=== PATIENT | male | born 1950 | race Caucasian/White ===

== ENCOUNTER 2016-08-10 16:53 | Inpatient (IN) | payer OTHER ==
[2016-08-10] MEDS ORDERED: IOPAMIDOL 370 (76%) 100 ML VIAL IV ONE (16:54)
[2016-08-10 17:38] LABS: ABSOLUTE NEUTROPHIL COUNT 6.6 K/mm3 (1.8-7.7); BASO % 0.4 % (0.2-1.0); EOS # 0.2 (0.0-0.5); EOS % 1.9 % (0.9-2.9); HEMATOCRIT 43.2 % (32.0-52.0); HEMOGLOBIN 13.8 gm/l (14.0-18.0); IMM NEUT% 0.3 % (0-1); LYMPH # 1.9 (1.0-4.8); LYMPH % 20.5 % (15-45); MEAN CELL VOLUME 85.4 fl (80.0-94.0); MEAN CORPUSCULAR HEMOGLOBIN 27.3 pg (27.0-31.0); MEAN CORPUSCULAR HGB CONC 31.9 g/dl (33.0-37.0); MEAN PLATELET VOLUME 10.5 fl (7.4-10.4); MONO # 0.6 (0.0-0.8); MONO % 6.5 % (4-12); NEUT % 70.4 % (43-75); PLATELET COUNT 286 K/mm3 (130-400)
[2016-08-10] MEDS ORDERED: ASPIRIN CHEWTAB 81 MG TABLET ONE (17:46)
--- NOTE | 2016-08-10 17:47 | RAD ---
08/10/2016 5:42 PM CHEST - 2 VIEWS History: Shortness of breath Comparison: 09/17/2015 Findings: Two views of the chest are obtained. The lungs demonstrate tiny bilateral effusions. Patchy interstitial and airspace disease is noted at the bilateral base. Vascular marginal blurring and prominence to the perihilar, central airways is present. Findings are worrisome for heart failure though multifocal pneumonia could have a similar appearance. The cardiomediastinal silhouette is top normal in size. The osseous structures are intact.. IMPRESSION: Findings of probable heart failure. Follow-up as clinically warranted.
[2016-08-10 17:48] LABS: ALB/GLOB RATIO 1.4 (>1.0); CALCIUM 9.6 mg/dL (8.6-10.3)
[2016-08-10 17:54] LABS: TROPONIN I 0.04 ng/ml (0.0-0.06)
[2016-08-10 17:57] LABS: CKMB ISOENZYME 5.5 ng/ml (0.6-6.3)
[2016-08-10 18:01] LABS: D-DIMER 0.95 mg/L FEU (0.20-0.50); INR 1.15; PARTIAL THROMBOPLASTIN TIME 25.6 SECONDS (24.5-33.0); PROTHROMBIN TIME 12.2 SECONDS (9.3-11.4)
--- NOTE | 2016-08-10 19:09 | CT ---
INDICATION: Elevated d-dimer. COMPARISON: Plain films earlier on the same day. TECHNIQUE: Helical scan mode CT of the Thorax with 2 mm collimated images were obtained after uneventful intravenous contrast administration of 80 cc of Isovue-[id number]. Sagittal and coronal reformations with high resolution lung algorithm images were also created at this time. Maximal intensity projection images and 3-D volumetric sequences were created at a separate, dedicated workstation. DLP: 1178.7 FINDINGS: There are no pulmonary arterial filling defects. There is prominence to the main pulmonary artery measuring 3.7 cm on axial image 47 at the level the bifurcation. Right main pulmonary artery measures approximately 3.3 cm on image 46, while the left main pulmonary artery measures approximately 3.1 cm on axial image 38. Findings could relate to pulmonary arterial hypertension in the correct clinical context. Mosaic attenuation is present with intralobular septal thickening. Compressive airspace disease is noted at the lung bases bilaterally though underlying pneumonia cannot excluded. Bilateral moderate to large effusions are present, right greater than left. These were not as extensive on recent chest x-ray, and may have been in a subpulmonic distribution. The central airways are widely patent. There is no axillary adenopathy. Right paratracheal node on image 31 measures 1.6 x 1.6 cm. Subcarinal node on image 43 measures 1.5 x 1.5 cm. Right paratracheal node on image 24 measures 2 x 1.5 cm. Nodes are enlarged without respect histology. The heart and great vessels opacify normally. Possible coronary stent. Correlation with history. Mild cardiomegaly. No pericardial effusion. Limited assessment of the abdomen demonstrates small stones or sludge within the dependent portion of the gallbladder. Reflux of contrast from the right atrium is noted into the liver, likely relating to cardiac dysfunction. The remainder of the abdomen is unremarkable. Small sclerotic focus is present within the left seventh rib laterally on image 80. Finding is nonspecific and may relate to a bone island. There may be small bone island within the right fifth lateral rib as well. No other lytic or sclerotic lesions are identified. Mild degenerative changes of the spine. IMPRESSION: 1. Negative for pulmonary embolism. 2. Bilateral moderate to large effusions, regular the left. Additionally findings of heart failure are present with intralobular septal thickening. Mosaic attenuation to the lungs is present with associated compressive atelectasis from the effusions. Underlying pneumonia cannot be excluded. 3. Mild cardiomegaly. Possible cardiac stent. 4. Other findings as above. Findings were called to Dr. Gonzales at approximately 1904 hours on 08/10/2016.
[2016-08-10] MEDS ORDERED: FUROSEMIDE 40 MG/4 ML VIAL ONE (19:15)
[2016-08-10 21:44] VITALS: BMI 31.5
[2016-08-10] MEDS ORDERED: MAGNESIUM HYDROXIDE 30 ML UDCUP PO PRN (21:51)
[2016-08-10] MEDS ORDERED: BLISTEX LIPSTICK 1 EACH TP PRN (21:51)
[2016-08-10] MEDS ORDERED: BISACODYL 10 MG SUP PR PRN (21:51)
[2016-08-10] MEDS ORDERED: ACETAMINOPHEN 325 MG TABLET PO PRN (21:51)
[2016-08-10] MEDS ORDERED: MENTHOL/CETYLPYRD 1 EACH LOZENGE PO PRN (21:51)
[2016-08-10] MEDS ORDERED: BISACODYL 5 MG TABLET.EC PO PRN (21:51)
[2016-08-10] MEDS ORDERED: SODIUM CHLORIDE 0.9% 100 ML IV PRN (21:51)
[2016-08-10] MEDS ORDERED: PNEUMOCOCCAL 23-VAL P-SAC VAC 0.5 ML VIAL IM V ONE (21:53)
[2016-08-10] MEDS ORDERED: INSULIN ASPART (DOSE) 100 UNITS/1 ML SUB-Q PRN (22:09)
[2016-08-11 03:22] LABS: ABSOLUTE NEUTROPHIL COUNT 5.5 K/mm3 (1.8-7.7); BASO % 0.4 % (0.2-1.0); EOS # 0.2 (0.0-0.5); EOS % 2.5 % (0.9-2.9); HEMATOCRIT 39.9 % (32.0-52.0); IMM NEUT% 0.4 % (0-1); LYMPH # 1.9 (1.0-4.8); LYMPH % 22.6 % (15-45); MEAN CELL VOLUME 84.5 fl (80.0-94.0); MEAN CORPUSCULAR HEMOGLOBIN 27.5 pg (27.0-31.0); MEAN CORPUSCULAR HGB CONC 32.6 g/dl (33.0-37.0); MEAN PLATELET VOLUME 10.7 fl (7.4-10.4); MONO # 0.6 (0.0-0.8); MONO % 7.5 % (4-12); NEUT % 66.6 % (43-75); PLATELET COUNT 245 K/mm3 (130-400)
[2016-08-11 03:36] LABS: CALCIUM 9.5 mg/dL (8.6-10.3); MAGNESIUM 1.3 mg/dL (1.9-2.7)
[2016-08-11] MEDS ORDERED: Potassium Chloride ORAL SOLN 20 MEQ/15 ML UDCUP PO ONE (04:31)
[2016-08-11] MEDS ORDERED: MAGNESIUM SULFATE 2 G/50 ML 2 G in Premix (Water) 50 ml 1 EACH IV ONE ×2 (04:34→10:06)
[2016-08-11] MEDS ORDERED: MAGNESIUM SULFATE 1 G/100 ML 200 ML IV ONE (04:38)
[2016-08-11] MEDS ORDERED: PUMP TUBING ONE (04:56)
[2016-08-11] MEDS: MAGNESIUM SULFATE 1 G/100 ML 100 ML IV SCH ×2 (04:59→06:11)
[2016-08-11] MEDS ORDERED: ASPIRIN (ENTERIC COATED) 81 MG TABLET.EC PO SCH (09:00)
[2016-08-11] MEDS ORDERED: FUROSEMIDE 40 MG TABLET PO SCH (09:00)
[2016-08-11] MEDS ORDERED: LOSARTAN POTASSIUM 50 MG TABLET PO SCH (09:00)
[2016-08-11] MEDS ORDERED: DOCUSATE SODIUM 100 MG CAPSULE PO SCH (09:00)
[2016-08-11] MEDS ORDERED: METOPROLOL TARTRATE 25 MG TABLET PO SCH (09:00)
[2016-08-11] MEDS ORDERED: POTASSIUM CHLORIDE 20 MEQ TAB.PRT.SR PO SCH (10:15)
--- NOTE | 2016-08-11 10:41 | PDOC43 ---
- Subjective Chief Complaint: shortness of breath Patient feeling improved, has not been out of bed. Still cannot lay flat. Denies dizziness, tolerating diet. No chest pain Subjective: Reports Pain Tolerable, Reports Tolerating Diet Well, Reports Adequate Oral Intake, Reports Urinating Without Difficulty, Denies Shortness of Breath, Denies Cough, Denies Chest Pain, Denies Abdominal Pain, Denies Nausea, Denies Vomiting, Denies Fever - Objective Vital Signs Temperature 97.9 F 08/11/16 07:52 Pulse Rate 84 08/11/16 07:52 Respiratory Rate 16 08/11/16 08:00 Blood Pressure 153/104 08/11/16 07:52 O2 Saturation by Pulse Oximetry 94 08/11/16 07:52 Oxygen Delivery Method Room Air Oxygen Flow Rate 0 Intake and Output 08/09/16 08/10/16 08/11/16 23:59 23:59 23:59 Output Total 1450 Balance -1450 General: Alert, Oriented x3, Cooperative, Other (obese), No Acute Distress HEENT: Atraumatic, PERRLA, EOMI Lungs: Clear to Auscultation Bilaterally, Normal Air Movement, Other (no crackle or wheeze) Laboratory 08/11/16 02:45 08/11/16 02:45 08/11/16 08/11/16 08/10/16 07:31 02:45 22:49 MCHC 32.6 L RDW 16.0 H POC Capillary Glucose 134 H 157 H Magnesium 1.3 L Current Medications: Current meds reviewed in EMR. - Problems: Assessment/Plan (1) Pleural effusion Status: AcuteAssessment/Plan: Suspect new onset CHF. B/L pleural effusion on CT. Symptoms improved with diuresis. No oxygen requirements. (2) CHF (congestive heart failure) Qualifiers: Congestive heart failure type: unspecified congestive heart failure type Congestive heart failure chronicity: acute Qualifier Code: (I50.9) Heart failure, unspecified Status: AcuteAssessment/Plan: new diagnosis with elevated BNP upon presentation and B/L pleural effusions. No peripheral edema. Unknown etiology with negative troponins, no evidence of recent viral infection. Patient with CAD and stenting in 2013 Echocardiogram pending (3) Hypokalemia Status: AcuteAssessment/Plan: 2nd to diuretic use. Replace (4) Hypomagnesemia Status: AcuteAssessment/Plan: 2nd to poor intake and diuretics. Replace (5) CAD (coronary artery disease) Qualifiers: Coronary Disease-Associated Artery/Lesion type: [place] artery [place] vs. transplanted heart: [place] heart Associated angina: without angina Qualifier Code: (I25.10) Atherosclerotic heart disease of [place] coronary artery without angina pectoris Status: AcuteAssessment/Plan: Stent placed in 2013 following RI. Currently taking aspirin, beta kim and ARB. Adding diuretic (6) DM II (diabetes mellitus, type II), controlled Qualifiers: Diabetes mellitus complication status: without complication Diabetes mellitus assisted insulin use: without intermediate project manager use Qualifier Code: (E11.9 ) Type 2 diabetes mellitus without complications Status: ChronicAssessment/ Plan: on PO meds, held and using sliding scale (7) Hyperlipidemia Qualifiers: Hyperlipidemia type: mixed hyperlipidemia Qualifier Code: (E78.2) Mixed hyperlipidemia Status: ChronicAssessment/Plan: stable, on statin
[2016-08-11 15:32] VITALS: BP 147/98
[2016-08-11] MEDS ORDERED: FUROSEMIDE 20 MG/2 ML VIAL IV ONE (18:24)
--- NOTE | 2016-08-11 19:01 | TS ---
DARIO ROWE [id number] DISCHARGE DIAGNOSES: 1. Acute worsening of systolic congestive heart failure. 2. History of coronary artery disease, with previous stenting. 3. History of diabetes. 4. History of glaucoma. REASON FOR ADMISSION: The patient is a 64-year-old male with prior history of coronary artery disease who presents regarding dyspnea for the previous four days, worse with exertion, associated with orthopnea and some indigestion symptoms and cold sweats. He has taken a baby aspirin daily, but otherwise has not taken any medicine for this. He was noted in the emergency department to have a white count of 9.4, hemoglobin 13.8 and platelets of 286. INR was 1.15, PTT of 25.6 and D-dimer 0.95. Lactate 1.3. Chemistry profile showed a sodium of 141, potassium 3.6, chloride 108, BUN of 28, creatinine 1.1, glucose 152, calcium 9.6 and bilirubin 1.5. AST of 19 and ALT of 27. Troponin of 0.04. BNP greater than 1,250. Lipase 28. His influenza testing was negative. Because of his elevated D-dimer he underwent CT angiography of the chest, showing negative for pulmonary embolism, bilateral moderate to large effusions, right greater than left, with findings of heart failure present. Mild cardiomegaly. Possible stent. The patient was referred to the Hospitalist Service. An H&P was done, but is still pending at this time. He had his troponin monitored and it remained stable at 0.04 throughout 08/11/2016. Blood sugars were managed with a sliding scale and generally between 120-145. His follow-up CBC was unchanged. He underwent echocardiography, which showed a significant reduction in ejection fraction, preliminary report being 20%. This was reviewed with Dr. Camarena who was familiar with this patient and felt that if he had a significant change in status with a markedly low ejection fraction at this time, it would be worth transferring for further cardiac evaluation. He is anticipated to be transferred tonight on 08/11/2016. MEDICATIONS: His current medications are: 1. Acetaminophen 650 every six hours as needed. 2. Aspirin 81 mg daily. 3. Lipitor 40 mg at bedtime. 4. Cepacol as needed. 5. Dulcolax by mouth daily as needed. 6. Docusate 100 mg by mouth twice a day. 7. Lasix 40 mg daily. 8. Lantus sliding scale. 9. Cozaar 25 mg daily. 10. Xlnj-df-Dkckyvtl 30 mL by mouth daily as needed. 11. Metoprolol 12.5 mg by mouth twice a day. 12. Blistex topically as needed. 13. Potassium 20 mEq by mouth twice a day. VITAL SIGNS: His vital signs currently at this time appear to be stable, with a temperature of 98.7, pulse 80, blood pressure 147/98, respirations 16, and 95% saturation on room air. The patient weighs 117.5 kilograms and 1.93 meters. CODE STATUS: Do not intubate. PLAN: The plan was reviewed with the patient and he was accepting of this, and indicated this was somewhat similar to his hospital course he had a couple of years ago, and he had prompt resolution of his symptoms upon placement of the cardiac stent (that previous time). cc: Dr. Rayshawn Brown
[2016-08-11] MEDS ORDERED: ATORVASTATIN CALCIUM 40 MG TABLET PO SCH (21:00)
--- NOTE | 2016-08-14 13:17 | HP ---
DARIO ROWE [id number] DATE OF : 1950 DATE OF ADMISSION: 08/10/2016 IDENTIFICATION: This is a 66-year-old male. CHIEF COMPLAINT: Shortness of breath. HISTORY OF PRESENT ILLNESS: The patient is a 66-year-old male who has had for the past 3 days has developed worsening shortness of breath and lower extremity edema. He has not noticed any weight gain. He has not been able to lie flat. His shortness of breath worsens with lying flat. He has been sleeping sitting up. He denies any chest pain, or pressure, or cough with this. PAST MEDICAL HISTORY: 1. He had a myocardial infarction with a stent in 2012. 2. Diabetes. 3. Glaucoma. 4. Hyperlipidemia. PAST SURGICAL HISTORY: 1. He has had a retinal attachment. 2. Hernia. HOME MEDICATIONS: Include: 1. Metoprolol. 2. Losartan. 3. Atorvastatin. 4. Metformin. 5. Aspirin. 6. Januvia. 7. Magnesium. ALLERGIES: TOBRADEX. SOCIAL HISTORY: He lives with his and his younger son. He is a real-estate assistant professor of biology. FAMILY HISTORY: Diabetes in her father. Mother had breast cancer, and end-stage renal disease. REVIEW OF SYSTEMS: General: No fevers, or chills. Fatigue, and cold sweats. HEENT: No throat pain, or congestion. Cardiovascular: There is no chest pain, or pressure. Respiratory: Shortness of breath, no cough. Gastrointestinal: Nausea. No abdominal pain, no vomiting. Musculoskeletal: No muscle aches, or pains. Neurologic: Some dizziness with getting up. PHYSICAL EXAMINATION: VITAL SIGNS: Temperature is 97.9. Heart rate is 88. Blood pressure is 186/16. He is saturating 96% on room air. GENERAL: He is alert, and oriented sitting up in bed. Not in acute distress. HEENT: Normocephalic, atraumatic. No tenderness to palpation. Mucous membranes are moist. There is no scleral icterus, or conjunctival injection. NECK: Supple, trachea is midline. No appreciable jugular venous distention. CARDIOVASCULAR: Regular. He has positive S1. No peripheral edema. RESPIRATORY: Respiratory is clear to auscultation bilaterally, no rhonchi or wheezing. ABDOMEN: Soft, nontender. No rebound. No guarding. MUSCULOSKELETAL: He is moving extremities without difficulty. NEUROLOGIC: He is alert and oriented. LABORATORY DATA: Sodium is 141, potassium 3.6, chloride 108, carbon dioxide of 24, BUN 28, creatinine 1.1, and glucose of 152. He had a CK-MB of 5.5 and a troponin of 0.04. A BNP greater than 1250. White blood count of 9.5, hemoglobin 13.8, hematocrit 43.2, and platelet count of 286. PT of 12.2 and INR 1.15 with PTT of 25.6. D-Dimer is 0.9. VBG lactate of 1.3. Influenza A and B are negative. DIAGNOSTIC IMAGING: Chest CT for pulmonary embolism was obtained and described as negative for pulmonary embolism. Bilateral moderate to large effusions right greater than left. Additional findings of heart failure present with interlobular septal thickening with attenuation to the lungs present with mosaic atelectasis from effusion. Mild cardiomegaly, possible cardiac stents. Chest x-ray was obtained and interpreted as findings probable heart failure. ASSESSMENT AND PLAN: This is a 65-year-old male with development of bilateral pleural effusions with shortness of breath. 1. Bilateral pleural effusions suspect heart failure with his elevated BNP. This is relatively acute with a history of prior myocardial infarction and stenting. We will obtain echocardiogram in the morning. We will provide him diuresis. He is having relief from diuresis provided in the emergency department, we will continue his treatment. 2. Coronary artery disease prior history of stent with no evidence of chest pain without elevation of troponin at this time. We will repeat his troponins and monitor. 3. Diabetes. We will hold his metformin and provide sliding scale. 4. Glaucoma. We will continue his eye drops. 5. Hypokalemia. We will supplement hyperlipidemia, but continue his home medication. 6. The patient is a DO NOT INTUBATE. He would like CPR. SELINA/icera
== END 2016-08-11 19:05 | disposition short-term general hospital (02) | DRG 641 ==
LOC: ED 16:53 → MS 19:51
PROVIDERS: ADMIT Family Medicine; ATTEND Family Medicine
DX: E87.70 Fluid overload, unspecified (principal); J90 Pleural effusion, not elsewhere classified; I25.2 Old myocardial infarction; Z98.61 Coronary angioplasty status; E11.21 Type 2 diabetes mellitus with diabetic nephropathy; H40.9 Unspecified glaucoma; E78.5 Hyperlipidemia, unspecified; I25.10 Atherosclerotic heart disease of native coronary artery without angina pectoris; E11.9 Type 2 diabetes mellitus without complications; E87.6 Hypokalemia; E83.42 Hypomagnesemia; I50.9 Heart failure, unspecified